=== PATIENT | female | born 1930 | race Caucasian/White ===

== ENCOUNTER 2018-08-05 12:46 | Emergency (ER) | payer SELFPAY ==
[~2018-08-05] VITALS: Ht 157.5 cm; Wt 62.0 kg
[2018-08-05 13:02] VITALS: BP 204/131; PULSE 83; RESP 18; Ht 157.5 cm; Wt 62.0 kg
== END 2018-08-06 00:42 | disposition left against medical advice (07) ==
LOC: E/R 12:46
DX: Z53.21 Procedure and treatment not carried out due to patient leaving prior to being seen by health care provider (principal)